=== PATIENT | female | born 1950 | race Caucasian/White ===

== ENCOUNTER → 2019-08-20 15:06 | Outpatient (CLI) | payer MEDICARE, BC, SELFPAY ==
--- NOTE | ~2019-08-20 | XR_ITS ---
EXAMINATION: XR chest 2V EXAM DATE: 08/20/2019 15:38 INDICATION: Cough. TECHNIQUE: Frontal and lateral projections of the chest obtained and reviewed. There is no prior rigo dy for comparison. FINDINGS: Triple lead pacemaker/AICD device. The lungs are clear. There are no pleural effusions. The cardiomediastinal silhouette is within normal limits. There is no pneumothorax suspected. The b ones and soft tissues are unremarkable. IMPRESSION: No acute cardiopulmonary findings. Reviewed, dictated and finalized at location A. PIECE ASSEMBLER
== END ==
DX: R05 Cough (principal)
CPT/HCPCS: 71046

== ENCOUNTER 2019-09-09 10:00 | Outpatient (RCR) | payer MEDICARE, BC, SELFPAY ==
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
--- NOTE | 2019-08-19 11:24 | PCPTNOTE ---
Patient called & cancelled scheduled appointment this date due to weather.
--- NOTE | 2019-09-09 14:46 | PTOPEVAL ---
Thank you for referring this patient to [facility]. Please review, sign, date and return this plan of care MOSES. Pt has been seen for 8 Physical Therapy visits to address back and left leg pain. As a result of skilled therapy she demonstrates progress with trunk and LE strength, improved trunk motion, improved LE flexibility, improved walking speed and improved pain to allow improved tolerance with daily activities. Will plan to f/u with pt for 1 additional visit to finalize her HEP and provide additional skilled teaching to allow pt to transition to indep self-care program and fitness program. I agree with and certify that the following plan of care is medically necessary. Referring Physician Date Attending Provider: Caitlin Benedict NP Referring Provider: *PT Outpatient Re-Evaluation Start: 08/11/19 12:30 Freq: Status: Active Protocol: Document 09/09/19 10:03 MARY (Rec: 09/09/19 10:46 MARY [email or web address]) Therapy Assessment Status Assessment Status Assessment Status Re-evaluation Outpatient Past Medical History Cardiovascular History Hx Hypertension Yes: controlled with medication Hx Pacemaker Yes: 01/29 Respiratory History Hx Asthma Yes Musculoskeletal History Hx Arthritis Yes: left knee and back Hx Back Pain Yes Hx Degenerative Disk Disease Yes: lumbar region Hx Orthopedic Surgery Yes: left knee meniscus repair 15 year Hx Other Musculoskeletal Disorders Yes: right 5th metatarsal fracture 18 months ago, left foot plantarfascitis Evaluation Information Problem Diagnosis left back and left leg pain Onset Jul 2019 Subjective Information She cont to have left foot Query Text:As Reported By Patient/ pain at times, that increases Family with walking and standing. She has shoe inserts, but does not wear them all the time. Reports she has not tested her back pain with increased walking or lifting activities to know the higher level of back pain. She is cautious with negotiating steps with use of rail and cane. She usually performs in a step together pattern. She does have increased pain in foot/back with prolonged community walking, but not at the same intensity. She does not p
--- NOTE | 2019-09-24 10:55 | PCPTNOTE ---
Patient called & cancelled scheduled appointment this date due to no reason provided. She does not have additional appt scheduled.
--- NOTE | 2019-10-04 12:53 | PCPTNOTE ---
Admitting Provider: Attending Provider: Caitlin Benedict NP Patient:Oanh Coffey Date of :1950 Patient has not returned for any further treatments since 09/09/2019, therefore she will be discharged from therapy at this time. Pt was seen for 8 therapy visits. The goals have not been achieved. Thank you for referring this patient to [facility]. Please review, sign, date and return this discharge summary MOSES. I have been updated about the patient's current status and I agree with discharge from the above service at this time. Referring Physician Date
== END 2019-10-04 13:56 | disposition home or self-care (01) ==
LOC: ANHPT 10:00
PROVIDERS: PCP Family Medicine; Visit Provider Nurse Practitioner
DX: M54.5 Low back pain (principal)
CPT/HCPCS: 97110; 97140; 97162

== ENCOUNTER 2020-11-22 15:35 | Outpatient (CLI) | payer MEDICARE, BC, SELFPAY ==
--- NOTE | ~2020-11-22 | XR_ITS ---
XR forearm RT 2V DATE: 11/22/2020 15:59 INDICATION: Fall one day ago. Posterior proximal forearm pain TECHNIQUE: AP and lateral views COMPARISON: None FINDINGS: No fracture or dislocation, periosteal reaction or bone destruction. Alignment is preserved at the elbow and wrist joints. IMPRESSION: No fracture or dislocation Reviewed, dictated and finalized at location A. IMPRESSION: No fracture or dislocation
== END 2020-11-22 15:36 | disposition home or self-care (01) ==
PROVIDERS: PCP Family Medicine; Visit Provider Family Medicine
DX: S59.911A Unspecified injury of right forearm, initial encounter (principal); K21.9 Gastro-esophageal reflux disease without esophagitis
CPT/HCPCS: 73090

== ENCOUNTER 2020-12-04 14:01 | Outpatient (CLI) | payer MEDICARE, BC, SELFPAY ==
--- NOTE | ~2020-12-04 | XR_ITS ---
XR foot RT min 3V 12/04/2020 14:19 Indication: Right foot pain Procedure: 4 views right foot Comparison: No prior studies for comparison. Findings: Mild osteoarthritis of the right first MTP joint. There is mild osteoarthritis of multiple interphalangeal joints. Normal mineralization. No fracture or traumatic malalignment. Lisfranc joint is intact. There is degenerative calcaneal enthesophyte at the insertion of the Achilles. Impression: 1: Mild polyarticular osteoarthritis. Reviewed, dictated and finalized at location A. Impression: 1: Mild polyarticular osteoarthritis.
== END 2020-12-04 14:02 | disposition home or self-care (01) ==
LOC: ANHIMG 14:07
PROVIDERS: PCP Family Medicine; Visit Provider Family Medicine
DX: S99.921A Unspecified injury of right foot, initial encounter (principal); M19.071 Primary osteoarthritis, right ankle and foot
CPT/HCPCS: 73630

== ENCOUNTER 2021-02-26 07:27 | Outpatient (CLI) | payer MEDICARE, BC, SELFPAY ==
--- NOTE | 2021-03-21 23:18 | WPDHOMESLEEP ---
Sleep Study - Home Unattended Date of Study: 02/26/21 Ordering Provider: Bri Fuchs NP Interpreting Provider: Nancy Machuca MD Home Sleep Study Type: Apnea Link Air Height: 1.55 m Weight: 97.522 kg Body Mass Index: 40.6 Neck Circumference (inches): 16.5 [place]: 9 Reason for Sleep Study Loud snoring, difficulty falling asleep and staying asleep Sleep History Oanh Coffey is a 70 year old female with loud snoring. she was recently diagnosed with cough variant asthma. She started using sleeping pills about 15 years ago because she was waking herself up snoring. She now has congestion and cough at night and she sleeps in a recliner for this reason. There is a strong family history of sleep disorder breathing with her sister using CPAP. Her mother also had a history of problem sleeping. All four of her siblings have insomnia. She occasionally wakes from sleep feeling short of breath. She frequently awakens at night with heartburn, belching or coughing. She constantly snores loudly. She frequently has trouble sleeping with a cold. She occasionally wakes up gasping for breath at night and occasionally has breathing problems at night observed by others. She rarely sweats excessively at night or notices her heart pounding or beating irregularly at night. She frequently falls asleep during the day, occasionally falls asleep involuntarily, rarely falls asleep while driving. She rarely feels paralyzed on waking or falling asleep. She occasionally has vivid dreamlike scenes upon awakening or falling asleep. She is not afraid to go to sleep. She rarely has nightmares and rarely remembers her dreams. She rarely has racing thoughts. She rarely feels sad, depressed or anxious. She frequently has muscular tension. She occasionally notices parts of her body jerking. She rarely kicks at night. She does not have crawling aching feelings in her legs. She occasionally has leg pain at night. She does not have morning jaw pain. She frequently is bothered by pain during the day, occasionally awakened by pain at night. She constantly wakes up feeling stiff in the morning occasionally with sore achy muscles occasionally with pain in the neck and spine. She has fatigue and memory problems. She has insomnia. She uses Flonase for rhinitis. Normal bedtime is between midnight and 1:00 a.m. taking at least 45 minutes to an hour to fall asleep typically waking 1 or 2 times at night to urinate, may go to a cooler area. She is able to return to sleep quickly because she take sedatives. She wakes the morning between 9:00 a.m. and 10:00 a.m.. Her weekend schedule is the same. She estimates getting 7-8 hours of sleep at night. she takes naps in the afternoon or evening. Sometimes a short nap is refreshing. She is usually drowsy in the morning for 2 hours or longer. She feels better in the evening compared to other times of day. She rarely awakens feeling refreshed. Habits: quit smoking tobacco 30 years ago. Caffeine 2 cups a day. Alcohol 2 beers on Fridays. Rarely has recreational drugs. [facility] Past Medical History Medical History Asthma Dyspnea on exertion follow with cardiology Essential (primary) hypertension GERD without esophagitis Hyperlipidemia Hypothyroid Insomnia Left knee pain Pacemaker (~02/2019) Dr Cortes at [facility] Heart and Vascular Surgical History Surgical History Hx of colonoscopy (~04/21/19) Family History Family History Other Diabetes mellitus Family history of hyperthyroidism Family history of malignant neoplasm of esophagus Malignant neoplasm of prostate Social History Social History Smoking status: Never smoker Alcohol intake: current Substance use: current Substance use type: chidi
[2021-03-21 23:31] VITALS: BMI 40.6
== END 2021-02-27 12:03 | disposition home or self-care (01) ==
LOC: ANHCSM 07:28
PROVIDERS: PCP Family Medicine; Visit Provider Nurse Practitioner Family
DX: G47.10 Hypersomnia, unspecified (principal); G47.33 Obstructive sleep apnea (adult) (pediatric); Z68.41 Body mass index [BMI] 40.0-44.9, adult; Z79.83 Long term (current) use of bisphosphonates
CPT/HCPCS: 95806

== ENCOUNTER → 2021-03-16 12:17 | Outpatient (CLI) | payer MEDICARE, BC, SELFPAY ==
--- NOTE | ~2021-03-16 | MM_ITS ---
EXAMINATION: MM screening kinsey BI w yelitza HISTORY: Screening TECHNIQUE: Craniocaudal and mediolateral oblique 3-D tomosynthesis images were obtained and synthetic 2-D images were generated. CAD analysis was submitted and interpreted. COMPARISON: Comparison to multiple prior studies sequentially, with oldest reviewed study dated 04/09. BREAST PARENCHYMAL COMPOSITION: There are scattered areas of fibroglandular density. FINDINGS: There is no evidence of suspicious mass, calcification, or architectural distortion to sugg est malignancy in either breast. There has been no suspicious interval change. IMPRESSION: 1. No mammographic evidence of malignancy. 2. Recommend routine screening mammography in one year. BI-RADS Category 1: Negative Reviewed, dictated and finalized at location A.
--- NOTE | ~2021-03-16 | DEXA_ITS ---
Bone Density Report Name: Oanh Coffey Age: 70 Sex: Female Ethnicity: White Date of : 1950 Indication: postmenopausal; screening for osteoporosis; parental hip fracture; history of glucocorticoids; prior fracture; asthma or emphysema; Referring Provider: Bri Fuchs Study: Bone densitometry was performed. Exam Date: March 16, 2021 Accession number: [id number] Bone Density: Region BMD T-score Z-score Classification AP Spine (L1-L4) 1.234 1.7 3.9 Normal Femoral Neck (Left) 0.844 0.0 1.9 Normal Total Hip (Left) 1.135 1.6 3.2 Normal Femoral Neck (Right) 0.840 -0.1 1.8 Normal Total Hip (Right) 1.094 1.2 2.9 Normal Total Hip Mean 1.115 1.4 3.1 Normal World Health Organization criteria for BMD impression classify patients as: Normal (T-score at or above -1.0), Osteopenia (T-score between -1.0 and -2.5), or Osteoporosis (T-score at or below -2.5). 10-year Fracture Risk: FRAX not reported because: All T-scores for Spine Total, Hip Total, Femoral Neck at or above -1.0 Previous Exams: Region Exam Age BMD T-score BMD Change BMD Change Date g/cm2 vs Baseline vs Previous AP Spine(L1-L4) 03/16/2021 70 1.234 1.7 -0.028 -0.012 05/21/2018 68 1.246 1.8 -0.016 -0.016 04/09/2016 66 1.262 2.0 Total Hip(Left) 03/16/2021 70 1.135 1.6 0.052 0.040 05/21/2018 68 1.095 1.3 0.012 0.012 04/09/2016 66 1.083 1.2 Total Hip(Right) 03/16/2021 70 1.094 1.2 0.036 0.036 05/21/2018 68 1.058 1.0 0.000 0.000 04/09/2016 66 1.058 1.0 *Denotes significance at 95% confidence level, LSC for AP Spine = 0.022 g/cm2, LSC for Total Hip = 0.027 g/cm2 Clinical Information Provided by Patient: Has had a low trauma fracture Parent has had a hip fracture Has taken Glucocorticoids Has used the following medications: Vitamin D, MULT VIT Has the following medical conditions: Asthma or Emphysema Patient maximum height was 62 Menopause Age: 49 No regular weight bearing exercise Drinks caffeinated beverages Onset of menses at age 11 Number of children 0 Impression: The patient has normal bone mass. The patient has risk factors, including: parental hip fracture, previous fracture, history of glucocorticoid therapy. No significant bone loss was observed. Discussion: BONE DENSITY IS ABOVE THE MINIMUM DESIRABLE LEVEL AT
== END ==
PROVIDERS: PCP Family Medicine; Visit Provider Nurse Practitioner Family
DX: Z12.31 Encounter for screening mammogram for malignant neoplasm of breast (principal); Z78.0 Asymptomatic menopausal state
CPT/HCPCS: 77063; 77067; 77080

== ENCOUNTER 2021-04-03 08:24 | Outpatient (CLI) | payer MEDICARE, BC, SELFPAY ==
--- NOTE | 2021-04-16 11:43 | WPDSLEEPSTUD ---
Sleep Study Date of Study: 04/03/21 Ordering Provider: Bri Fuchs NP Interpreting Physician: Nancy Machuca MD Sleep Study Type: CPAP Titration Height: 1.55 m Weight: 96.162 kg Body Mass Index: 40.0 Neck Circumference (inches): 16 [place]: 9 Reason for Sleep Study * home sleep test, ApneaLink February 26, 2021 with severe obstructive sleep apnea, AHI 64, desaturation to 67%, presents for CPAP titration. Sleep History Oanh Coffey is a 70 year old female with loud snoring. She was recently diagnosed with cough variant asthma. She started using sleeping pills about 15 years ago because she was waking herself up snoring. She now has congestion and cough at night and she sleeps in a recliner for this reason. There is a strong family history of sleep disorder breathing with her sister using CPAP. Her mother also had a history of problem sleeping. All four of her siblings have insomnia. She occasionally wakes from sleep feeling short of breath. She frequently awakens at night with heartburn, belching or coughing. She constantly snores loudly. She frequently has trouble sleeping with a cold. She occasionally wakes up gasping for breath at night and occasionally has breathing problems at night observed by others. She rarely sweats excessively at night or notices her heart pounding or beating irregularly at night. She frequently falls asleep during the day, occasionally falls asleep involuntarily, rarely falls asleep while driving. She rarely feels paralyzed on waking or falling asleep. She occasionally has vivid dreamlike scenes upon awakening or falling asleep. She is not afraid to go to sleep. She rarely has nightmares and rarely remembers her dreams. She rarely has racing thoughts. She rarely feels sad, depressed or anxious. She frequently has muscular tension. She occasionally notices parts of her body jerking. She rarely kicks at night. She does not have crawling aching feelings in her legs. She occasionally has leg pain at night. She does not have morning jaw pain. She frequently is bothered by pain during the day, occasionally awakened by pain at night. She constantly wakes up feeling stiff in the morning occasionally with sore achy muscles occasionally with pain in the neck and spine. She has fatigue and memory problems. She has insomnia. She uses Flonase for rhinitis. Normal bedtime is between midnight and 1:00 a.m. taking at least 45 minutes to an hour to fall asleep typically waking 1 or 2 times at night to urinate, may go to a cooler area. She is able to return to sleep quickly because she take sedatives. She wakes the morning between 9:00 a.m. and 10:00 a.m.. Her weekend schedule is the same. She estimates getting 7-8 hours of sleep at night. she takes naps in the afternoon or evening. Sometimes a short nap is refreshing. She is usually drowsy in the morning for 2 hours or longer. She feels better in the evening compared to other times of day. She rarely awakens feeling refreshed. Habits: quit smoking tobacco 30 years ago. Caffeine 2 cups a day. Alcohol 2 beers on Fridays. Rarely has recreational drugs. [facility] Past Medical History Medical History Asthma Dyspnea on exertion follow with cardiology Essential (primary) hypertension GERD without esophagitis Hyperlipidemia Hypothyroid Insomnia Left knee pain Pacemaker (~02/2019) Dr Cortes at [facility] Heart and Vascular Surgical History Surgical History Hx of colonoscopy (~04/21/19) Family History Family History Other Diabetes mellitus Family history of hyperthyroidism Family history of malignant neoplasm of esophagus Malignant neoplasm of prostate Social History Social History Smoking status: Never smoker Alcohol intake: current
[2021-04-16 13:01] VITALS: BMI 40.0
== END 2021-04-04 06:47 | disposition home or self-care (01) ==
LOC: ANHCSM 08:26
PROVIDERS: PCP Family Medicine; Visit Provider Nurse Practitioner Family
DX: G47.33 Obstructive sleep apnea (adult) (pediatric) (principal); Z72.821 Inadequate sleep hygiene
CPT/HCPCS: 95811

== ENCOUNTER 2021-06-26 13:19 | Outpatient (CLI) | payer MEDICARE, BC, SELFPAY ==
[2021-06-26 13:48] LABS: Basophils Percent Auto 0.8 % (0.2-1.2); Eosinophils Absolute Auto 0.2 K/mm3 (0-0.3); Eosinophils Percent Auto 2.9 % (0-4.4); Hematocrit 39.7 % (37.0-47.0); Hemoglobin 13.1 g/dL (12.0-15.0); Immature Granulocyte Absolute 0.01 K/mm3 (0.00-0.031); Immature Granulocyte Percent A 0.2 % (0-0.5); Lymphocytes Absolute Auto 1.14 K/mm3 (0.9-3.2); Lymphocytes Percent Auto 21.9 % (18.3-44.2); Mean Corpuscular Hemoglobin 31.3 pg (26-34); Mean Platelet Volume 10.1 fl (7.4-10.4); Monocytes Absolute Auto 0.7 K/mm3 (0.1-0.6); Monocytes Percent Auto 12.7 % (2.6-8.5); Neutrophils Absolute Auto 3.2 K/mm3 (1.3-6.7); Neutrophils Percent Auto 61.5 % (45.5-73.1); Platelet Count Result 160 k/mm3 (150-375); Red Blood Count 4.18 M/mm3 (4.2-5.4); Red Cell Distribution Width 12.5 % (11.5-14.5); White Blood Count 5.2 K/mm3 (4.5-10.0)
== END 2021-06-26 13:20 | disposition home or self-care (01) ==
PROVIDERS: PCP Family Medicine; Visit Provider Internal Medicine Pulmonary Disease
DX: J45.30 Mild persistent asthma, uncomplicated (principal)
CPT/HCPCS: 36415; 85025

== ENCOUNTER 2021-07-23 14:40 | Outpatient (CLI) | payer MEDICARE, BC, SELFPAY ==
--- NOTE | 2021-07-24 07:16 | WPDSIXMINUTE ---
Six Minute Walk Procedure Procedure Performed Pulmonary Stress Test (6 min walk) Six Minute Walk This is a 6 minute walk test. The test was performed and interpreted in accordance with the 2014 ERS/ATS task force guidelines. Findings: The patient's resting room air oxygen saturation measured by pulse oximetry was 96% and heart rate was 79 bpm. Patient ambulated for 244 meters and oxygen saturation remained 92 to 99%. Heart rate at the end of the study was 103 bpm. The patient did not qualify for supplemental oxygen at rest or with ambulation. There are no prior studies for comparison.
--- NOTE | 2021-07-24 07:17 | WPDPFTINT ---
PFT Procedure Performed PFT Procedure Performed Spirometry with Pre/Post Bronchodilator Plethysmography (Lung Vol) Diffusing Cap (DLCO) Flow Vol Loop PFT Interpretation This is a pulmonary function test with pre and post-bronchodilator spirometry, plethysmography and diffusing capacity. The test was performed and results interpreted in accordance with the 2019 and 2005 ATS/ERS Task Force guidelines respectively using the Global Lung Function Initiative-2012 reference equations. Patient demonstrated good effort and cooperation. Reproducibility criteria were met. The quality of the pre bronchodilator spirometry maneuver was Grade A and post bronchodilator spirometry maneuver was Grade A. Findings: Spirometry: The contour the inspiratory and expiratory flow tracing are normal. The pre bronchodilator FVC is 2.22 L, 89% predicted. The pre bronchodilator FEV1 is 1.54 L, 79% predicted. The FEV1: FVC ratio 69%. The post bronchodilator FVC is 2.16 L, representing a 3% decrease. The post bronchodilator FEV1 is 1.55 L, representing no change. Post bronchodilator FEV1: FVC ratio 72%. Plethysmography: The total lung capacity is 4.73 L, 103% predicted. The functional residual capacity is 2.82 L, 108% predicted. The residual volume is 2.51 L, 121% predicted. Diffusing capacity: The absolute diffusion capacity is 14.3, 75% predicted. The diffusing capacity corrected for alveolar volume is 4.21, 96% predicted. Impression: The spirometry is normal without evidence of an obstructive abnormality. There is no significant improvement after inhaling a single dose of albuterol. The lung volumes are normal. The diffusing capacity is normal. There are no prior studies for comparison
== END 2021-07-23 14:41 | disposition home or self-care (01) ==
LOC: ANHPFT 14:42
PROVIDERS: PCP Family Medicine; Visit Provider Internal Medicine Pulmonary Disease
DX: J45.30 Mild persistent asthma, uncomplicated (principal)
CPT/HCPCS: 94060; 94618; 94726; 94729

== ENCOUNTER 2022-04-12 21:17 | Outpatient (NON) | payer MEDICARE, BC, SELFPAY | END 2022-04-12 21:18 | disposition home or self-care (01) | LOC: ANHLAB 21:19 | PROVIDERS: PCP Family Medicine; Visit Provider Family Medicine | DX: R39.9 Unspecified symptoms and signs involving the genitourinary system (principal) | CPT/HCPCS: 87077; 87086; 87186 ==

== ENCOUNTER 2022-07-18 14:00 | Outpatient (CLI) | payer MEDICARE, BC, SELFPAY ==
[2022-07-18 20:49] LABS: Alanine Aminotransferase 78 U/L (6-35); Albumin Level 4.5 g/dL (3.5-5.1); Alkaline Phosphatase 54 U/L (38-126); Anion Gap 2 mmol/L (8-16); Aspartate Amino Transferase 58 U/L (14-36); Bilirubin,Total 0.5 mg/dL (0.2-1.3); Blood Urea Nitrogen 21 mg/dL (7-17); Calcium 10.7 mg/dL (8.4-10.2); Carbon Dioxide 33 mmol/L (22-30); Chloride 105 mmol/L (98-107); Estimated Glomerular Filt Rate 49; Glucose 81 mg/dL (65-110); Potassium 4.4 mmol/L (3.4-5.0); Sodium 140 mmol/L (137-145)
[2022-07-18 21:52] LABS: Vitamin D 25 Hydroxy 63.9 ng/mL
[2022-07-18 22:06] LABS: Thyroid Stimulating Hormone Reflex < 0.015 uIU/mL (0.465-4.68)
[2022-07-19 09:00] LABS: Free T4 Free Thyroxine Reflex 1.83 ng/dL (0.78-2.19)
[2022-07-19 11:15] LABS: Total Triiodothyronine (T3) 0.98 NG/ML (0.97-1.69)
== END 2022-07-18 14:01 | disposition home or self-care (01) ==
LOC: ANHGOSHLAB 14:37
PROVIDERS: PCP Family Medicine; Visit Provider Nurse Practitioner Family
DX: E03.9 Hypothyroidism, unspecified (principal); E55.9 Vitamin D deficiency, unspecified; I10 Essential (primary) hypertension
CPT/HCPCS: 36415; 80053; 82306; 84439; 84443; 84480

== ENCOUNTER → 2022-08-22 12:00 | Outpatient (CLI) | payer MEDICARE, BC, SELFPAY ==
--- NOTE | ~2022-08-22 | MM_ITS ---
EXAMINATION: MM screening kinsey BI w yelitza HISTORY: Screening mammogram TECHNIQUE: Craniocaudal and mediolateral oblique 3-D tomosynthesis images were obtained and synthetic 2-D images were generated. CAD analysis was submitted and interpreted. COMPARISON: 03/16/2021, 12/25/2018, 04/09/2016 bilateral screening mammogram examinations BREAST PARENCHYMAL COMPOSITION: There are scattered areas of fibroglandular density. FINDINGS: There is no evidence of suspicious mass, calcification, or architectural distortion to sugg est malignancy in either breast. There has been no suspicious interval change. IMPRESSION: 1. No mammographic evidence of malignancy. 2. Recommend routine screening mammography in one year. BI-RADS Category 1: Negative Reviewed, dictated and finalized at location A. TY AND SECURITY MANAGER
== END ==
PROVIDERS: PCP Family Medicine; Visit Provider Family Medicine
DX: Z12.31 Encounter for screening mammogram for malignant neoplasm of breast (principal)
CPT/HCPCS: 77063; 77067

== ENCOUNTER 2022-09-11 21:50 | Outpatient (NON) | payer MEDICARE, BC, SELFPAY | END 2022-09-11 21:51 | disposition home or self-care (01) | PROVIDERS: PCP Family Medicine; Visit Provider Nurse Practitioner | DX: R39.9 Unspecified symptoms and signs involving the genitourinary system (principal) | CPT/HCPCS: 87077; 87086; 87186 ==

== ENCOUNTER 2023-04-30 08:56 | Outpatient (CLI) | payer MEDICARE, BC, SELFPAY ==
[2023-04-30 18:37] LABS: Basophils Absolute Auto 0.1 K/mm3 (0.0-0.1); Eosinophils Absolute Auto 0.1 K/mm3 (0-0.3); Eosinophils Percent Auto 2.8 % (0-4.4); Hematocrit 38.6 % (37.0-47.0); Hemoglobin 12.6 g/dL (12.0-15.0); Immature Granulocyte Absolute 0.01 K/mm3 (0.00-0.031); Immature Granulocyte Percent A 0.2 % (0-0.5); Lymphocytes Absolute Auto 1.53 K/mm3 (0.9-3.2); Lymphocytes Percent Auto 30.2 % (18.3-44.2); Mean Corpuscular HGB Conc 32.6 g/dl (32-36); Mean Corpuscular Hemoglobin 30.7 pg (26-34); Mean Corpuscular Volume 94.1 fl (80-100); Mean Platelet Volume 10.7 fl (7.4-10.4); Monocytes Absolute Auto 0.7 K/mm3 (0.1-0.6); Neutrophils Absolute Auto 2.6 K/mm3 (1.3-6.7); Neutrophils Percent Auto 51.8 % (45.5-73.1); Platelet Count Result 157 k/mm3 (150-375); White Blood Count 5.1 K/mm3 (4.5-10.0)
[2023-04-30 19:34] LABS: Alanine Aminotransferase 70 U/L (6-35); Albumin Level 4.4 g/dL (3.5-5.1); Alkaline Phosphatase 50 U/L (38-126); Anion Gap 5 mmol/L (8-16); Aspartate Amino Transferase 49 U/L (14-36); Bilirubin,Total 0.7 mg/dL (0.2-1.3); Blood Urea Nitrogen 36 mg/dL (7-17); Calcium 10.8 mg/dL (8.4-10.2); Carbon Dioxide 28 mmol/L (22-30); Chloride 106 mmol/L (98-107); Cholesterol 158 mg/dL (0-200); Estimated Glomerular Filt Rate 34; Glucose 92 mg/dL (65-110); HDL Direct 42 mg/dL; Potassium 4.4 mmol/L (3.4-5.0); Sodium 139 mmol/L (137-145); Triglycerides 148 mg/dL (<150)
[2023-04-30 19:45] LABS: LDL Cholesterol Direct 82 mg/dL
[2023-04-30 20:03] LABS: Thyroid Stimulating Hormone < 0.015 uIU/mL (0.465-4.680)
[2023-04-30 20:27] LABS: Hemoglobin A1C 5.1 % (<5.7)
[2023-05-04 14:43] LABS: Vitamin D 1,25 (OH)2 Total 31 pg/mL (18-72); Vitamin D2 1,25 (OH)2 <8 pg/mL; Vitamin D3 1,25 (OH)2 31 pg/mL
== END 2023-04-30 08:57 | disposition home or self-care (01) ==
LOC: ANHGOSHLAB 08:58
PROVIDERS: PCP Family Medicine; Visit Provider Nurse Practitioner Family
DX: E55.9 Vitamin D deficiency, unspecified (principal); I10 Essential (primary) hypertension; E03.9 Hypothyroidism, unspecified; E11.9 Type 2 diabetes mellitus without complications
CPT/HCPCS: 36415; 80053; 80061; 82652; 83036; 84443; 85025

== ENCOUNTER → 2023-07-30 13:22 | Outpatient (CLI) | payer MEDICARE, BC, SELFPAY ==
--- NOTE | ~2023-07-30 | US_ITS ---
EXAMINATION: US renal BI DATE: 07/30/2023 13:40 INDICATION: Chronic kidney disease, stage IIIB. TECHNIQUE: Multiple ultrasound grayscale images of the kidneys were obtained. COMPARISON: None. FINDINGS: The right kidney measures 10.5 x 5.6 x 4.8 cm. The left kidney measures 11.7 x 5.0 x 4.5 cm. The kidn eys demonstrate normal parenchymal echogenicity. There is a 7 mm cyst in each kidney. There is no hyd ronephrosis. The bladder is normal. IMPRESSION: 1. Normal kidney sizes. No hydronephrosis. Reviewed, dictated and finalized at location E. UTER PUBLISHER
== END ==
PROVIDERS: PCP Family Medicine; Visit Provider Internal Medicine Nephrology
DX: N18.32 Chronic kidney disease, stage 3b (principal)
CPT/HCPCS: 76775

== ENCOUNTER 2023-10-03 14:57 | Outpatient (CLI) | payer MEDICARE, BC, SELFPAY ==
--- NOTE | ~2023-10-03 | MM_ITS ---
EXAMINATION: MM screening kinsey BI w yelitza HISTORY: Screening TECHNIQUE: Craniocaudal and mediolateral oblique 3-D tomosynthesis images were obtained and synthetic 2-D images were generated. CAD analysis was submitted and interpreted. COMPARISON: Comparison to multiple prior studies sequentially, with oldest reviewed study dated 04/09. BREAST PARENCHYMAL COMPOSITION: Not dense: There are scattered areas of fibroglandular density. FINDINGS: There is no evidence of suspicious mass, calcification, or architectural distortion to sugg est malignancy in either breast. There has been no suspicious interval change. IMPRESSION: 1. No mammographic evidence of malignancy. 2. Recommend routine screening mammography in one year. BI-RADS Category 1: Negative Reviewed, dictated and finalized at location A.
== END 2023-10-03 14:58 ==
LOC: MICIMG 14:58
PROVIDERS: PCP Family Medicine; Visit Provider Family Medicine
DX: Z12.31 Encounter for screening mammogram for malignant neoplasm of breast (principal)
CPT/HCPCS: 77063; 77067

== ENCOUNTER 2024-06-15 14:15 | Outpatient (RCR) | payer MEDICARE, BC, SELFPAY ==
--- NOTE | 2024-05-18 15:40 | OPREHPOC ---
Outpatient Therapy Plan of Care This is a Multidisciplinary Plan of Care that may contain components documented by all disciplines (PT, OT, and ST.) PT Problem 1 PT Problem #1 Knowledge Deficit PT Goal 1 Goal / Goal Update Stearns with HEP Target Visit 4 PT Goal 2 Goal / Goal Update Report 20% improvement in LEFS for gross functional improvement Target Visit 8 PT Problem 2 PT Problem #2 Impaired Strength PT Goal 1 Goal / Goal Update Improve silvestre hip flexion to 4+/5 to improve foot clearance for gait and mobility activity Target Visit 8 PT Goal 2 Goal / Goal Update Improve silvestre hip abduction to 4/5 to improve core stability for gait and mobility activity Target Visit 8 PT Goal 1 Goal / Goal Update Improve lower abominal strength to 4/5 to improve lumbar stabilization with ADLs Target Visit 8 PT Goal 2 Goal / Goal Update Demonstrate ability to maintain single leg stance for 30s bilaterally Target Visit 8
--- NOTE | 2024-05-18 15:40 | PTOPEVAL1 ---
Assessment and note entered by Davis Gooden, PT Evaluation Information Assessment Status Evaluation ICD-10 Condition Codes (PT) Pain in right hip M25.551,Pain in left hip M25.552 ,M25.561,Pain in left knee M25.562 Onset 2 years ago Subjective Information Reports that she has history of silvestre plantar fasciitis and left knee meniscus repair. She has had a lot of trouble with her right hip. 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 She has pain in the low back that is greater on the left. She will occasionally get a pinch on the right as well. No radicular pain at this time. She is planning to visit [place] next fall and would like to start getting in shape for it. She started doing TaiChi and has had issues with her balance and hip stability. Reported Pain Level Pain Score 0: Self Report Assessment PT Clinical Summary Patient presents with signs and symptoms consistent with poor core stabilization and hip osteoarthritis resulting in gait deviation and weakness. Patient will benefit from skilled therapy to address core weakness and lateral hip stability to improve single leg stabilization for advancement of TaiChi and yogi to improve personal goals for fdc strengthening. Plan of Care Interventions Gait Training,Hot Pack/Cold Pack,Manual Therapy, Neuro Re-education,Therapeutic Activities, Therapeutic Exercise PT Services Indicated Yes Treatment Frequency and 2x/week for 8 visits Duration These treatments will address the objective and functional deficits as defined above. The patient will be advanced safely and appropriately in order for the patient to progress towards his/her prior level of function. Additional exercises will be introduced and as well as a comprehensive home exercise program upon discharge, if needed, ?to ensure carryover of functional gains achieved in the clinic. This treatment plan has been reviewed and agreement upon by the patient.
--- NOTE | 2024-06-04 07:59 | PCPTNOTE ---
Patient was canceled 06/03/24 due to therapist being out with illness.
--- NOTE | 2024-06-15 16:37 | OPREHPOC ---
Outpatient Therapy Plan of Care This is a Multidisciplinary Plan of Care that may contain components documented by all disciplines (PT, OT, and ST.) PT Problem 1 PT Problem #1 Knowledge Deficit PT Goal 1 Goal / Goal Update [place] with HEP Target Visit 4 Progress Met PT Goal 2 Goal / Goal Update Report 20% improvement in LEFS for gross functional improvement Target Visit 8 Progress Met PT Problem 2 PT Problem #2 Impaired Strength PT Goal 1 Goal / Goal Update Improve silvestre hip flexion to 4+/5 to improve foot clearance for gait and mobility activity Target Visit 8 Progress Met PT Goal 2 Goal / Goal Update Improve silvestre hip abduction to 4/5 to improve core stability for gait and mobility activity Target Visit 8 Progress Met PT Goal 1 Goal / Goal Update Improve lower abominal strength to 4/5 to improve lumbar stabilization with ADLs Target Visit 8 Progress Met PT Goal 2 Goal / Goal Update Demonstrate ability to maintain single leg stance for 30s bilaterally Target Visit 8 Progress Not Met
--- NOTE | 2024-06-15 16:39 | PTOPDC ---
Assessment and note entered by Davis Gooden, PT Evaluation Information Assessment Status Discharge ICD-10 Condition Codes (PT) Pain in right hip M25.551,Pain in left hip M25.552 ,M25.561,Pain in left knee M25.562 Onset 2 years ago Subjective Information Reports that overall she is doing better. Still has some function and pain limitations at this time but overall is much improved. She is able to get up off the floor easier, getting up and down stairs easier, and regular walking is easier. Reported Pain Level Pain Score 0: Self Report Assessment PT Clinical Summary Patient has met all goals for therapy at this time . She still has some minor balance deficits. Will continue to work on HEP and stray involved in Dov- Chi to maintain core activity and stability. Suitable for discharge at this time. Plan of Care PT Services Indicated D/C to HEP
== END 2024-06-16 10:25 | disposition home or self-care (01) ==
LOC: ANHGOSHPT 14:15
PROVIDERS: PCP Family Medicine; Visit Provider Family Medicine
DX: M25.551 Pain in right hip (principal); M25.552 Pain in left hip; M25.561 Pain in right knee; M25.562 Pain in left knee
CPT/HCPCS: 97110; 97112; 97161; 97530

== ENCOUNTER 2024-06-30 00:35 | Day surgery (SDC) | payer MEDICARE, BC, SELFPAY ==
[2024-06-17 14:24] VITALS: BMI 37.5
[2024-06-30 10:17] VITALS: BP 147/56; PULSE 65; RESP 14; TEMP 35.9; O2SAT 95; BMI 35.9
[2024-06-30] MEDS: LACTATED RINGERS 1,000 ML 150 ML IV CONT (10:34)
--- NOTE | 2024-06-30 10:52 | WPDANESEPPF ---
Anes - Initial Pre Proc Eval Procedure: Operation Date: 06/30/24 11:30 Proposed Procedures p Screening Colonoscopy - Lex Armenta MD Date/Time: 06/30/24 10:52 Surgeon: Lex Armenta MD Pre Op Diagnosis: hx colon polyps Patient Data Age: 74 Gender: F Height: 1.55 m Weight: 86.3 kg Last Vital Signs Temp 35.9 C L 06/30/24 10:17 Pulse 65 06/30/24 10:17 Resp 14 06/30/24 10:17 BP 147/56 H 06/30/24 10:17 Pulse Ox 95 06/30/24 10:17 O2 Del Method Room Air 06/30/24 10:17 Allergies Allergy/AdvReac Type Severity Reaction Status Date / Time MICHELLE Inhibitors Allergy Mild unknown Verified 06/30/24 10:14 cephalexin Allergy Mild dry cough Verified 06/30/24 10:14 pentazocine Allergy Unknown UNSURE Verified 06/30/24 10:14 Home Medications ?Medication ?Instructions ?Recorded ?Confirmed ?Type coenzyme Q10 200 mg capsule (Co 200 mg PO DAILY 05/27/19 06/30/24 History Q-10) glucosamine sulfate 2KCl 1,000 mg 1,000 mg PO BID 05/27/19 06/30/24 History tablet magnesium 250 mg tablet 250 mg PO DAILY 05/27/19 06/30/24 History melatonin 1 mg tablet 1 mg PO DAILY 05/27/19 06/17/24 History multivitamin 1 cap PO DAILY 05/27/19 06/30/24 History vit A 1,000 unit-C 60 mg-E 30 1 tablet PO DAILY 05/27/19 06/30/24 History unit-zinc oxid-selenium AA-copper tablet (Vision Formula(Y-T-P-Zn-Se-Cu)) Bacillus coagulans 10 billion cell 10 cell PO .COMPLEX 11/22/20 06/30/24 History capsule,delayed release (Probiotic (B. coagulans)) cholecalciferol (vitamin D3) 25 2,000 unit PO BID 11/22/20 06/30/24 History mcg (1,000 unit) capsule potassium gluconate 500 mg (83 mg) 500 mg PO DAILY 07/03/21 06/30/24 History tablet atorvastatin 20 mg tablet 20 mg PO QHS #90 tabs 09/29/23 06/30/24 Rx albuterol sulfate 90 mcg/actuation 2 puff inhalation .PRN PRN 12/02/23 06/17/24 History aerosol inhaler Shortness Of Breath Or Wheezing fenofibrate 54 mg tablet 54 mg PO DAILY #90 tabs 04/08/24 06/30/24 Rx valsartan 320 mg tablet 320 mg PO DAILY #90 tabs 04/14/24 06/30/24 Rx biotin 10,000 mcg capsule (Ger 10,000 mcg PO DAILY 04/28/24 06/30/24 History Biotin) famotidine 20 mg tablet 20 mg PO DAILY PRN Indigestion 04/28/24 06/30/24 History trazodone 50 mg tablet 50 mg PO QHS PRN insomnia #90 tabs 04/30/24 06/17/24 Rx levothyroxine 100 mcg tablet 100 mcg PO DAILY #90 tabs 05/12/24 06/30/24 Rx meloxicam 7.5 mg tablet 7.5 mg PO DAILY #90 tabs 06/09/24 06/30/24 Rx citalopram 10 mg tablet 10 mg PO DAILY #90 tabs 06/14/24 06/30/24 Rx ciclopirox 8 % topical solution 1 applic topical DAILY 06/17/24 06/30/24 History docosahexaenoic acid 300 mg 500 mg PO DAILY 06/17/24 06/30/24 History capsule (DHA Algal-900) fluticasone furoate 100 1 inh inhalation DAILY PRN 06/17/24 06/17/24 History mcg-vilanterol 25 mcg/dose Shortness Of Breath Or Wheezing inhalation powder fluticasone propionate 50 1 spray intranasal PRN PRN Nasal 06/17/24 06/17/24 History mcg/actuation nasal Congestion spray,suspension (Allergy Relief (fluticasone)) guaifenesin 1 cap PO DAILY PRN Cough 06/17/24 06/17/24 History lysine 500 mg tablet 500 mg PO DAILY 06/17/24 06/30/24 History vitamin B complex 1 cap PO DAILY 06/17/24 06/30/24 History hyoscyamine sulfate 0.125 mg tablet See Rx Instructions .Route 06/21/24 06/30/24 Rx .COMPLEX #270 tabs Patient hx anesthesia problems: none Family hx anesthesia problems: none Results Review: All pre-operative results and documents have been reviewed as part of the pre-operative evaluation. [facility] Past Medical History Medical History Osteoarthritis Urge incontinence History of colon polyps Stage 3a chronic kidney disease Congestive heart failure Asthma GERD without esophagitis Dyspnea on exertion follow with cardiology Hypothyroid Insomnia Hyperlipidemia Surgical History Surgical History History of cardiac pacemaker (~01/2019) Dr Cortes at [facility] Heart and Vascular History of elbow surgery b/l elbow tendon release 1989 -right 1990 - left History of medial meniscus repair of left knee (~05/2004) Hx of colonoscopy (~04/21/19) Family History Family History Other Diabetes mellitus Family history of hyperthyroidism Family history of malignant neoplasm of esophagus Malignant neoplasm of prostate Social History Social History Smoking status: Former smoker Smoking end date: 01/11/87 Alcohol intake: current Alcohol use details: occasionnally Substance use: current Substance use type: marijuana Other substance usage details: smoke and edibles Do You Feel Safe in your Home?: Yes Lack of Transportation: No Lack of Food: Never True Current Housing: I Have Housing Concerned About Future Housing: No Difficulty Paying Gas/Electric Bills: No Difficulty Paying for Meds: No Currently Unemployed: No Education: Bachelor's Degree Difficulty w/ Childcare or Family Care: No Living arrangements: alone Occupation/Education: retired Gender identity (if verbalized by the patient): Female Anes - Eval Final PreProcedure Day of Procedure 06/30/24 10:52 Patient weight: obese Heart: regular rate and rhythm Lungs: decreased breath sounds Airway: Mallampati scale class II Neurological: alert and oriented Last oral intake: >/= 8 hours ASA classification: IV Emergent: no Anesthetic plan: proceed Anesthesia type and monitoring: general GIVS and standard monitoring Results Review: All pre-operative results and documents have been reviewed as part of the pre-operative evaluation. Informed Consent: The patient's anesthetic plan and its attendant risks and benefits were discussed with the patient/family/POA. Questions were solicited and answers provided to the satisfaction of the patient/family/POA.
--- NOTE | 2024-06-30 11:42 | P.HP_ITS ---
H&P: HPI History of Present Illness Date/Time: 06/30/24 11:42 Chief Complaint: History of colon polyps Narrative: The patient has a history of colonic polyps, the last colonoscopy was 5 years ago. Review of Systems Review of Systems: All systems reviewed & are unremarkable except as noted in HPI and below [facility] Past Medical History Medical History (Updated 06/30/24 @ 11:43 by Lex Armenta MD) Osteoarthritis Urge incontinence History of colon polyps Stage 3a chronic kidney disease Congestive heart failure Asthma GERD without esophagitis Dyspnea on exertion follow with cardiology Hypothyroid Insomnia Hyperlipidemia Surgical History Surgical History History of cardiac pacemaker (~01/2019) Dr Cortes at [facility] Heart and Vascular History of elbow surgery b/l elbow tendon release 1989 -right 1990 - left History of medial meniscus repair of left knee (~05/2004) Hx of colonoscopy (~04/21/19) Family History Family History Other Diabetes mellitus Family history of hyperthyroidism Family history of malignant neoplasm of esophagus Malignant neoplasm of prostate Social History Social History Smoking status: Former smoker Smoking end date: 01/11/87 Alcohol intake: current Alcohol use details: occasionnally Substance use: current Substance use type: marijuana Other substance usage details: smoke and edibles Do You Feel Safe in your Home?: Yes Lack of Transportation: No Lack of Food: Never True Current Housing: I Have Housing Concerned About Future Housing: No Difficulty Paying Gas/Electric Bills: No Difficulty Paying for Meds: No Currently Unemployed: No Education: Bachelor's Degree Difficulty w/ Childcare or Family Care: No Living arrangements: alone Occupation/Education: retired Gender identity (if verbalized by the patient): Female Meds Home Medications and Allergies Home Medications ?Medication ?Instructions ?Recorded ?Confirmed ?Type coenzyme Q10 200 mg capsule (Co 200 mg PO DAILY 05/27/19 06/30/24 History Q-10) glucosamine sulfate 2KCl 1,000 mg 1,000 mg PO BID 05/27/19 06/30/24 History tablet magnesium 250 mg tablet 250 mg PO DAILY 05/27/19 06/30/24 History melatonin 1 mg tablet 1 mg PO DAILY 05/27/19 06/17/24 History multivitamin 1 cap PO DAILY 05/27/19 06/30/24 History vit A 1,000 unit-C 60 mg-E 30 1 tablet PO DAILY 05/27/19 06/30/24 History unit-zinc oxid-selenium AA-copper tablet (Vision Formula(C-J-P-Zn-Se-Cu)) Bacillus coagulans 10 billion cell 10 cell PO .COMPLEX 11/22/20 06/30/24 History capsule,delayed release (Probiotic (B. coagulans)) cholecalciferol (vitamin D3) 25 2,000 unit PO BID 11/22/20 06/30/24 History mcg (1,000 unit) capsule potassium gluconate 500 mg (83 mg) 500 mg PO DAILY 07/03/21 06/30/24 History tablet atorvastatin 20 mg tablet 20 mg PO QHS #90 tabs 09/29/23 06/30/24 Rx albuterol sulfate 90 mcg/actuation 2 puff inhalation .PRN PRN 12/02/23 06/17/24 History aerosol inhaler Shortness Of Breath Or Wheezing fenofibrate 54 mg tablet 54 mg PO DAILY #90 tabs 04/08/24 06/30/24 Rx valsartan 320 mg tablet 320 mg PO DAILY #90 tabs 04/14/24 06/30/24 Rx biotin 10,000 mcg capsule (Ger 10,000 mcg PO DAILY 04/28/24 06/30/24 History Biotin) famotidine 20 mg tablet 20 mg PO DAILY PRN Indigestion 04/28/24 06/30/24 History trazodone 50 mg tablet 50 mg PO QHS PRN insomnia #90 tabs 04/30/24 06/17/24 Rx levothyroxine 100 mcg tablet 100 mcg PO DAILY #90 tabs 05/12/24 06/30/24 Rx meloxicam 7.5 mg tablet 7.5 mg PO DAILY #90 tabs 06/09/24 06/30/24 Rx citalopram 10 mg tablet 10 mg PO DAILY #90 tabs 06/14/24 06/30/24 Rx ciclopirox 8 % topical solution 1 applic topical DAILY 06/17/24 06/30/24 History docosahexaenoic acid 300 mg 500 mg PO DAILY 06/17/24 06/30/24 History capsule (DHA Algal-900) fluticasone furoate 100 1 inh inhalation DAILY PRN 06/17/24 06/17/24 History mcg-vilanterol 25 mcg/dose Shortness Of Breath Or Wheezing inhalation powder fluticasone propionate 50 1 spray intranasal PRN PRN Nasal 06/17/24 06/17/24 History mcg/actuation nasal Congestion spray,suspension (Allergy Relief (fluticasone)) guaifenesin 1 cap PO DAILY PRN Cough 06/17/24 06/17/24 History lysine 500 mg tablet 500 mg PO DAILY 06/17/24 06/30/24 History vitamin B complex 1 cap PO DAILY 06/17/24 06/30/24 History hyoscyamine sulfate 0.125 mg tablet See Rx Instructions .Route 06/21/24 06/30/24 Rx .COMPLEX #270 tabs Allergies Allergy/AdvReac Type Severity Reaction Status Date / Time MICHELLE Inhibitors Allergy Mild unknown Verified 06/30/24 10:14 cephalexin Allergy Mild dry cough Verified 06/30/24 10:14 pentazocine Allergy Unknown UNSURE Verified 06/30/24 10:14 Vital Signs Vital Signs - 24 hr 06/30/24 10:17 Temperature 96.6 F L Pulse Rate 65 Respiratory Rate 14 Blood Pressure 147/56 H Pulse Oximetry 95 Oxygen Delivery Room Air Exam Const: General: cooperative and healthy appearing Resp: Effort & Inspection: normal respiratory effort and able to speak in complete sentences Auscultation: clear to auscultation bilaterally Cardio: Rate: regular rate Rhythm: regular rhythm GI: Inspection: normal to inspection GI Palp: No No hepatosplenomegaly present Auscultation: normal bowel sounds Rectal Exam: deferred Skin: General skin exam: normal color Psych: Appearance: grossly normal Mental Status: mental status grossly normal Assessment and Plan Assessment and plan (1) History of colon polyps: Code(s): Z86.0100 - Personal history of colon polyps, unspecified Status: Acute Assessment and Plan: The patient is deemed a good candidate for the procedure. Consent signed. Will proceed.
[2024-06-30 12:18] VITALS: BP 134/64; PULSE 62; RESP 21; O2SAT 98
[2024-06-30 12:28] VITALS: BP 136/60; PULSE 64; RESP 16; O2SAT 100
[2024-06-30 12:38] VITALS: BP 149/59; PULSE 60; RESP 22; O2SAT 100
== END 2024-06-30 12:59 | disposition home or self-care (01) ==
PROVIDERS: PCP Family Medicine; Visit Provider Internal Medicine Gastroenterology
PROC: 0DJD8ZZ Inspection of Lower Intestinal Tract, Via Natural or Artificial Opening Endoscopic (ICD-10-PCS; CPT 45378; principal; 2024-06-30 11:30)
DX: Z12.11 Encounter for screening for malignant neoplasm of colon (principal); D12.4 Benign neoplasm of descending colon; K63.5 Polyp of colon; K57.30 Diverticulosis of large intestine without perforation or abscess without bleeding; Z87.891 Personal history of nicotine dependence
CPT/HCPCS: 45385; 88305; J2003; J2704; J7120

== ENCOUNTER 2024-10-05 14:56 | Outpatient (CLI) | payer MEDICARE, BC, SELFPAY ==
--- NOTE | ~2024-10-05 | MM_ITS ---
EXAMINATION: MM screening [facility] BI w yelitza HISTORY: Screening TECHNIQUE: Craniocaudal and mediolateral oblique 3-D tomosynthesis images were obtained and synthetic 2-D images were generated. CAD analysis was submitted and interpreted. COMPARISON: 10/03/2023 and dating back to 12/25/2018 BREAST PARENCHYMAL COMPOSITION: There are scattered areas of fibroglandular density. FINDINGS: Punctate calcifications are detected bilaterally, secretory in origin, stable and benign in appearance. Stable parenchymal pattern without suspicious microcalcifications, architectural distortion, discrete masses or significant asymmetry. IMPRESSION: 1. No mammographic evidence of malignancy. 2. Recommend routine screening mammography in one year. BI-RADS Category 2: Benign finding(s). Reviewed, dictated and finalized at location A.
== END 2024-10-05 14:57 | disposition home or self-care (01) ==
LOC: MICIMG 14:58
PROVIDERS: PCP Family Medicine; Visit Provider Family Medicine
DX: Z12.31 Encounter for screening mammogram for malignant neoplasm of breast (principal)
CPT/HCPCS: 77063; 77067